=== PATIENT | male | born 1965 | race Caucasian/White ===

== ENCOUNTER → 2021-02-03 07:12 | Outpatient (CLI) | payer MEDICARE ==
[2021-01-06 13:43] VITALS: BMI 47.7
[~2021-02-03 07:12] MED LIST: ASPIRIN EC81 M1 PO; ATENOLOL25 MG; BUMEX2 MG PO; C-10001000 MG PO; CALCIUM 600 +1 EAC3 PO; CELEXA40 MG PO; CEREFOLIN TAB1 TAB PO; ENDOCET 10-3251 TAB PO; GLUCOPHAGE1000 MG PO; HYDROCODON-ACE1 EAC7 PO; JANTOVEN7.5 MG PO; K-DUR20 MEQ PO; KEPPRA500 MG PO; LISINOPRIL10 MG PO; LOPRESSOR25 MG PO; MIRAPEX0.25 MG PO; MIRAPEX1 MG PO; MOBIC7.5 MG PO; MULTI-DAY VITAM1 TAB PO; NEURONTIN 400400 MG PO; NEURONTIN800 MG PO; NORVASC5 MG PO; PERCOCET 10/3251 TA1 PO; PROTONIX40 MG PO; ROBAXIN500 MG PO; SEROQUEL200 MG PO; ULTRAM50 MG PO; VALIUM10 MG PO; ZESTORETIC 20-1 EACH PO
--- NOTE | 2021-02-05 09:41 | EC ---
PATIENT:BRAD QURESHI DATE OF SERVICE: 02/03/21 SEX: M MEDICAL RECORD: [id number] DATE OF : 65 LOCATION:[facility] AGE OF PATIENT: 55 ADMISSION DATE: 02/03/21 REFERRING PHYSICIAN: INTERPRETING PHYSICIAN: BRAD GARCIA MD ECHOCARDIOGRAM REPORT ECHO CHARGES 4 ECHO COMPLETE Date: 02/03/21 CLINICAL DIAGNOSIS: HEART MURMUR ECHOCARDIOGRAPHIC MEASUREMENTS (adult normal given) AC root (d.<3.7cm) 4.1 cm LV Septum d (<1.2 cm> 1.4 cm Valve Excursion 1.8 cm LV Septum (systole) 1.6 cm Left Atria (s.<4.0cm> 4.5 cm LVPW d(<1.2cm) 1.5 cm RV (d.<2.3cm) 4.2 cm LVPW (sytole) 1.6 cm LV diastole(<5.6CM) 6.1 cm MV E-F(>70mm/sec) cm LV systole 4.8 cm LVOT Diameter 1.9 cm MV exc.(>10mm) cm Est.ejection fraction (50-75%) % DOPPLER: LVIT cm/sec A 86.0 cm/sec E 61.0 cm/sec LA cm/sec RVSP 15 mmHg LVOT 78 cm/sec AOP1/2T m/s Asc. Ao 118 cm/sec RVOT 117 cm/sec RA cm/sec PA 135 cm/sec AV Gradient Peak 5.59 mmHg AV Mean 3.12 mmHg AV Area 1.8 cm MV Gradient Peak 3.91 mmHg MV Mean 1.82 mmHg MV Area cm COMMENTS: Metal Bonding Assembler: 2 LILA JEAN Churn Drill Operator: 3 Dr. Dong TAPE# PACS Pericardial Effusion N DATE OF SERVICE: Adequate 2D, color flow imaging, spectral Doppler, and M-Mode. LVH is present. LV internal dimensions are normal. Wall motion normal. EF greater than or equal to 55%. Aortic valve is tricuspid. No evidence of stenosis by Doppler interrogation. Left atrium is dilated at 4.5 cm. Mitral valve shows no prolapse. Trace MR. Right-sided chambers are grossly normal. Trace TR. ECHOCARDIOGRAM REPORT [id number] KIERABRAD TRANSINT:[id number] Voice Confirmation ID: [id number] DOCUMENT ID: [id number] BRAD GARCIA MD at 0941 CC: [id number] DICTATION DATE: 02/04/21 1441 CONTRACT ENGINEER: 02/04/211918 [facility] CLI 02/03/21 [facility] [address] [place] [address]
== END | disposition home or self-care (01) ==
LOC: D.HCCARDIO 07:12 → D.HCCECHO 11:00
PROVIDERS: ATTEND Internal Medicine Cardiovascular Disease
DX: I48.91 Unspecified atrial fibrillation (principal); R01.1 Cardiac murmur, unspecified

== ENCOUNTER → 2021-02-10 08:25 | Outpatient (CLI) | payer MEDICARE ==
[2021-01-06 13:43] VITALS: BMI 47.7
== END | disposition home or self-care (01) ==
LOC: D.MRI 08:25
DX: M17.0 Bilateral primary osteoarthritis of knee (principal)

== ENCOUNTER 2021-02-15 06:49 | Day surgery (SDC) | payer MEDICARE ==
[~2021-02-15] VITALS: Ht 182.9 cm; Wt 154.5 kg
--- NOTE | ~2021-02-15 | HEMODYNAMI ---
PATIENT:GEOFFREY QURESHI MEDICAL RECORD: [id number] : 65 LOCATION:[facility] ADMISSION DATE: 02/15/21 Generatedon:110:01 Patient name: GEOFFREY QURESHI Patient #: [id number] SSN: : 1965 Date of study: 02/15/2021 Page: Of Hemodynamic Procedure Report Patient Data Patient Demographics Procedure consent was obtained First Name: GEOFFREY Gender: Male Last Name: KIERA : 1965 Patient #: [id number] Age: 55 year(s) Race: Unknown Additional ID: [id number] Contact details Address: [place] [address] State: [place] City: [place] Zip code: [address] Past Medical History Allergies Allergen Reaction Date Comments Reported Other allergy 02/15/2021 MEPERIDINE, PCN Admission Admission Data Admission Date: 02/15/2021 Admission Time: 6:49 Lab Results Lab Result Date: 02/15/2021 Lab Result Time: 0:00 Biochemistry Name Units Result Min Max BUN mg/dl 13 --(--*-)-- 7 18 Creatinine mg/dl 1.3 --(---*)-- 0.6 1.3 eGFR ml/min 61.13230 *-(----)-- 90 120 NONAFRICAN CBC Name Units Result Min Max Hematocrit % 38.2 *-(----)-- 42 54 Hemoglobin g/dl 12.6 -*(----)-- 13.5 17.5 Procedure Procedure Types Cath Procedure Diagnostic Procedure LHC LHC w/Coronaries Procedure Description Procedure Date Procedure Date: 02/15/2021 Procedure Start Time: 9:46 Procedure End Time: 9:59 Procedure Staff Name Function Geoffrey Lucero MD Performing Physician Monica Bennett RT Monitor Chery Mckeon RT Scrub Kiera Gomez RN Nurse Procedure Data Cath Procedure Fluoroscopy Diagnostic fluoroscopy Total fluoroscopy Time: 1.1 time: 1.1 min min Diagnostic fluoroscopy Total fluoroscopy dose: 795 dose: 795 mGy mGy Contrast Material Contrast Material Type Amount (ml) Isovue 300 50 Entry Location Entry Primary Successful Side Size Upsize Upsize Entry Closure Wong ccessful Closure Location (Fr) 1 (Fr) 2 (Fr) Remarks Device Remarks Radial Right 6 Fr Mechanical artery Short Compression Estimated blood loss: 5 ml Procedure Complications No complications Procedure Medications Medication Administration Route Dosage Oxygen etCO2 Nasal cannula 2 l/min Lidocaine 2% added to field 20 Heparin Flush Bag added to field 2 bags (1000units/500ml NS) 0.9% NaCl I.V. 100 ml/hr Radial Cocktail added to field 1 syringe (Verapamil 2mg/Nitro 400mcg/Heparin 1500units) Radial Cocktail I.A. 1 syringe (Verapamil 2mg/Nitro 400mcg/Heparin 1500units) Versed I.V. 2 mg Fentanyl I.V. 100 mcg Versed I.V. 1 mg Fentanyl I.V. 50 mcg Hemodynamics Rest HGB: 12.6 (g/dl) Heart Rate: 69 (bpm) Pressure Samples Time Site Value (mmHg) Purpose Heart Use Rate(bpm) 9:49 LV 130/12,17 Snapshot 93 9:49 AO 132/92(111) Pullback 93 9:49 LV 131/7,9 Pullback 93 Gradients Valve Time Site 1 Site 2 Mean SEP/DFP Peak To Heart Use (mmHg) (sec/min) Peak Rate (mmHg) (bpm) Aortic 9:49 LV AO 0 93 131/7,9 132/92(111) Calculations Valve P-P Mean Valve Index Valve Source Name Gradient Area Flow (cm2) Aortic 0 0 Snapshots Pre Cath Intra NCS Post Cath Vital Signs Time Heart Resp SPO2 etCO2 NIBP (mmHg) Rhythm Pain Sedation Rate (ipm) (%) (mmHg) Status Level (bpm) 9:36:20 73 13 100 0 161/91(122) NSR 0 (11) 10(A) , No pain 9:40:47 67 21 99 0 150/97(116) NSR 0 (11) 10(A) , No pain 9:45:11 76 20 96 0 147/93(120) NSR 0 (11) 10(A) , No pain 9:49:25 92 20 98 0 141/92(115) NSR 0 (11) 9(A) , No pain 9:53:25 85 19 96 0 147/89(122) NSR 0 (11) 10(A) , No pain 9:57:49 0 140/91(111) NSR 0 (11) 10(A) , No pain Medications Time Medication Route Dose Verified Delivered Reason Notes Effectiveness by by 9:35:08 Oxygen etCO2 2 l/min Geoffrey Qureshi used for Nasal [facility] Pepe Gomez RN procedure cannula 9:35:15 Lidocaine 2% added 20ml Geoffrey Hale for local to vial [facility] anesthetic field MD GIL 9:35:21 Heparin Flush added 2 bags Geoffrey Hale used for Bag to [facility] procedure (1000units/500ml field MD GIL NS) 9:35:29 0.9% NaCl I.V. 100 Geoffrey Qureshi Per ml/hr [facility] Pepe Gomez RN physician 9:35:37 Radial Cocktail added 1 Geoffrey Hale for (Verapamil to syringe [facility] vasodilation 2mg/Nitro field MD GIL 400mcg/Heparin 1500units) 9:45:29 Versed I.V. 2 mg Geoffrey Qureshi for sedation [facility] Pepe Gomez RN, MD 9:45:36 Fentanyl I.V. 100 mcg Geoffrey Qureshi for sedation [facility] Pepe Gomez RN, MD 9:48:22 Radial Cocktail I.A. 1 Geoffrey Hale for (Verapamil syringe [facility] vasodilation 2mg/[place]set GIL MD 400mcg/Heparin 1500units) 9:48:51 Versed I.V. 1 mg Geoffrey Qureshi for sedation [facility] Pepe Gomez RN, MD 9:48:55 Fentanyl I.V. 50 mcg Geoffrey Qureshi for sedation [facility] Pe[facility] Gomez RN, MD Procedure Log Time Note 9:20:54 Kiera Gomez RN sent for patient. Start room use. 9:24:23 Informed consent obtained and on chart 9:24:48 Procedure Status Elective Heart Cath (OP). 9:24:50 Time tracking: Regular hours (M-F 7:00 - 5:00) 9:24:53 Plan of Care:Hemodynamics will remain stable., Cardiac rhythm will remain stable., Comfort level will be maintained., Respiratory function will remain adequate., Patient/ family verbilizes understanding of procedure., Procedure tolerated without complication., Recovers from procedure without complications.. 9:34:58 Vital chart was started 9:35:08 Oxygen 2 l/min etCO2 Nasal cannula was administered by Kiera Gomez RN; used for procedure; Verbal order read back and verified. 9:35:15 Lidocaine 2% 20ml vial added to field was administered by Geoffrey Lucero MD; for local anesthetic; Verbal order read back and verified. 9:35:21 Heparin Flush Bag (1000units/500ml NS) 2 bags added to field was administered by Geoffrey Lucero MD; used for procedure; Verbal order read back and verified. 9:35:29 0.9% NaCl 100 ml/hr I.V. was administered by Kiera Gomez RN; Per physician; Verbal order read back and verified. 9:35:37 Radial Cocktail (Verapamil 2mg/Nitro 400mcg/Heparin 1500units) 1 syringe added to field was administered by Geoffrey Lucero MD; for vasodilation; Verbal order read back and verified. 9:37:11 Patient received from Pre/Post Procedure Room to CCL 1 Alert and oriented. Tansferred to table in Supine position. 9:37:12 Warm blankets applied, and oscar hugger turned on for patient comfort. 9:37:12 Correct patient and procedure confirmed by team. 9:37:12 ECG and BP/O2 sat monitors applied to patient. 9:37:13 Baseline sample Acquired. 9:37:16 Rhythm: sinus rhythm 9:37:18 Full Disclosure recording started 9:37:35 H&P Date Dictated: 01/25/2021 Within 30 days and on chart., H&P Addendum completed by physician on day of procedure. (MUST COMPLETE FOR ALL OUTPATIENTS). 9:37:36 Pre-procedure instructions explained to patient. 9:37:36 Pre-op teaching completed and patient verbalized understanding. 9:37:38 Family in patients room. 9:37:39 Patient NPO since Midnight. 9:41:36 Patient allergic to Other allergyMEPERIDINE, PCN 9:41:41 Is the patient allergic to Iodine/contrast media? No. 9:41:42 Is patient on blood thinner?No 9:41:44 Patient diabetic? Yes. 9:41:45 If diabetic: On Metformin? Yes 9:41:47 If on Metformin: Last Dose? 02/13/2021 9:41:53 Previous problem with sedation/anesthesia? No ? 9:41:54 Snore? Yes 9:41:55 Sleep apnea? Yes 9:41:56 Deviated septum? No 9:41:56 Opens mouth fully? Yes 9:41:58 Sticks out tongue? Yes 9:42:00 Airway obstruction? No ? 9:42:03 Dentures? No ? 9:42:07 Pre procedure: right dorsailis pedis pulse 1+ Palpable, but thready & weak; easily obliterated 9:42:09 Modified Ruben's test Ulnar < 7 seconds 9:42:11 Patient pain scale 2/10 ?. 9:42:18 IV patent on arrival in left antecubital with 0.9% NaCl at [facility]. 9:42:42 Lab Result : BUN 13 mg/dl 9::42 Lab Result : Creatinine 1.3 mg/dl 9:42:42 Lab Result : eGFR NONAFRICAN 61.11093 ml/min 9:42:42 Lab Result : Hemoglobin 12.6 g/dl 9:42:42 Lab Result : Hematocrit 38.2 % 9:42:45 Lab results completed and on chart. 9:42:52 Right groin area was prepped with chlora-prep and draped in sterile fashion 9:42:53 Alarms reviewed by R. N. 9:42:53 Sharps counted by scrub and verified by R.N. 9:44:22 --------ALL STOP TIME OUT------ 9:44:22 Final Timeout: patient, procedure, and site verified with staff and physician. All members of the team are in agreement. 9:44:24 Right Radial & Right Groin site verified by team. 9:44:27 Fire Safety Assessment: A--An alcohol-based skin anteseptic being used preoperatively., C--Open oxygen or nitrous oxide is being used., D--An ESU, laser, or fiber-optic light is being used. 9:44:31 Physical assessment completed. ASA score P 3 - A patient with severe systemic disease as per Geoffrey Lucero MD. 9:44:34 2) 60-89 Mildly reduced kidney function, and other findings (as for stage 1) point to kidney disease. 9:44:37 Maximum allowable contrast dose (3.7 X eGFR X 0.75)169 ml. 9:44:41 Sedation plan: IV Moderate Sedation Medication:Versed, Fentanyl 9:45:29 Versed 2 mg I.V. was administered by Kiera Gomez RN; for sedation; Verbal order read back and verified. 9:45:36 Fentanyl 100 mcg I.V. was administered by Kiera Gomez RN; for sedation; Verbal order read back and verified. 9:46:12 Zero performed for pressure channel P1 9:46:15 Procedure started. 9:46:24 Local anesthetic to right radial artery with Lidocaine 2% by Geoffrey Lucero MD.INITIAL ACCESS ONLY 9:46:55 Use device set Radial Dx or PCI 9:47:05 ACIST Syringe (12817) opened to sterile field. 9:47:05 Medline Cath Pack ([id number]) opened to sterile field. 9:47:06 Bag Decanter (2002S) opened to sterile field. 9:47:06 ACIST Hand Control (07083) opened to sterile field. 9:47:07 ACIST Manifold (16360) opened to sterile field. 9:47:07 Tegaderm 4 x 4 (1626W) opened to sterile field. 9:47:11 MBrace Wrist Support ([id number]) opened to sterile field. 9:47:11 EMERALD Guide Wire (275-824) opened to sterile field. 9:47:12 SHEATH 6FR RAIN ([id number]) opened to sterile field. 9:47:59 A 6 Fr Short sheath was inserted into the Right Radial artery 9:48:22 Radial Cocktail (Verapamil 2mg/Nitro 400mcg/Heparin 1500units) 1 syringe I.A. was administered by Geoffrey Lucero MD; for vasodilation; Verbal order read back and verified. 9:48:47 LV gram done using DUMONT 9:48:49 Injector settings: Ml/sec: 5, Volume: 15, 9:48:51 Versed 1 mg I.V. was administered by Kiera Gomez RN; for sedation; Verbal order read back and verified. 9:48:55 Fentanyl 50 mcg I.V. was administered by Kiera Gomez RN; for sedation; Verbal order read back and verified. 9:49:14 LV hemodynamics recorded. 9:49:31 EF : 50 % 9:50:17 LCA angiography performed. 9:51:41 RCA angiography performed. 9:51:44 Catheter removed. 9:51:48 ZEPHYR LARGE TR BAND (015449) opened to sterile field. 9:54:01 Procedure ended.(Physican Out) 9:54:54 Sheath removed intact; hemostasis achieved with Mechanical Compression to the Right Radial artery. 9:54:59 Fluoroscopy time 01.10 minutes. 9:55:03 Fluoroscopy dose: 795 mGy 9:55:03 Flurop Dose total: 795 9:55:15 Dose Area Product 02578 mGy/cm. 9:55:19 Contrast amount:Isovue 300 50ml. 9:55:22 Maximum allowable dose exceeded? No. 9:55:23 Sharps counted by scrub and verified by R.N. 9:55:33 [place] band inflated with 10cc of air. 9:55:35 Insertion/operative site no bleeding no hematoma. 9:55:38 Post-procedure physical assessment completed. ASA score P 2 - A patient with mild systemic disease as per Geoffrey Lucero MD. 9:57:50 Post procedure rhythm: unchanged. 9:57:53 Estimated blood loss: 5 ml 9:57:55 Post procedure instruction explained to patient.Patient verbalizes understanding. 9:57:55 Patient needs reinforcement of post procedure teaching. 9:59:09 Procedure and supply charges have been captured, reviewed, submitted and are correct. 9:59:11 Procedure Complication : No complications 9:59:13 Vital chart was stopped 9:59:[address] [facility] Findings: mild to moderate CAD (<70%) 9:59:18 Operative report dictated upon procedure completion. 9:59:18 See physician's report for complete and final results. 9:59:30 Report given to Pre/Post Procedure Room. 9:59:34 Patient transfered to Pre/Post Procedure Room with Bed. 9:59:37 Procedure ended. 9:59:37 Full Disclosure recording stopped 9:59:42 End room use (Document Last) 9:59:51 End room use (Document Last) 10:00:13 End room use (Document Last) Device Usage Item Name Manufacture Quantity Catalog Hospital Part Current Minima l Lot# / Number Charge Number Stock Stock Serial# Code ACIST Acist 1 29238 834303 068907 547320 20 Syringe [employer] Corporation (49847) Allclasses Inc Medline Medline 1 [id number] 00018 984843 5 Cath Pack ([id number]) Bag Microtek 1 769156 68199 411990 5 Decanter Medical Inc. () ACIST Hand Acist 1 95165 281760 706942 462861 5 Control Medical (83786) Systems Inc ACIST Acist 1 89265 388531 357379 038467 5 Manifold Medical (40793) Systems Inc Tegaderm 4 3M 1 1626W 683237 282067 641557 5 x 4 (1626W) MBrace Advanced 1 140-0250-00 642698 64070 399867 5 Wrist Vascular Support Dynamics ([id number]) EMERALD Cardinal 1 639-610 956927 190786 813207 5 Guide Wire Health (337-637) SHEATH 6FR Cardinal 1 2675438 431872 4323028 799258 5 RAIN Health (4573836) ZEPHYR Cardinal 1 598994 414092 8303478 351020 5 LARGE TR Health BAND (584495) Signature Audit [place] Stage Time Signature Unsigned Intra-Procedure 02/15/2021 Monica Bennett 9:59:51 AM RT(R) Intra-Procedure 02/15/2021 Kiera Gomez RN 10:00:13 AM Intra-Procedure 02/15/2021 Geoffrey Pollock 10:01:44 AM Pepe [id number] [place] [address]
[2021-02-15 08:32] VITALS: BP 169/93; Ht 182.9 cm; Wt 154.5 kg
[2021-02-15 08:50] LABS: BASOPHILS 0.6 % (0-2); HEMATOCRIT 38.2 % (42.0-54.0); HEMOGLOBIN 12.6 g/dL (13.5-17.5); IMMATURE GRANULOCYTES 0.6 % (0-5); LYMPHOCYTE ABS# 0.85 10x3/uL (1.32-3.57); LYMPHOCYTES 24.1 % (15-50); MCH 30.1 pg (26.0-34.0); MCV 91.2 fL (80.0-100.0); MEAN PLATELET VOLUME 11.1 fL (7.4-10.4); MONOCYTES 12.2 % (2-11); NEUTROPHIL ABS# 2.13 10x3/uL (1.78-5.38); NEUTROPHILS 60.5 % (40-80); PLATELET COUNT 150 10x3/uL (130-400); RBC 4.19 10x6/uL (4.20-6.10); RDW 13.9 % (11.5-14.5); WBC 3.5 10x3/uL (4.8-10.8)
[2021-02-15] MEDS ORDERED: GLIPIZIDE10 MG PO (08:52)
[2021-02-15] MEDS ORDERED: ERGOCALCIF50000 UNIT PO (08:53)
[2021-02-15] MEDS ORDERED: HYDROCODONE-AC1 EAC2 PO (08:53)
[2021-02-15] MEDS ORDERED: ALDACTONE25 MG PO (08:54)
[2021-02-15] MEDS ORDERED: NORVASC5 MG PO (08:56)
[2021-02-15] MEDS ORDERED: FLOMAX0.4 MG PO (08:56)
[2021-02-15 09:02] LABS: ANION GAP 12.9 mmol/L (8-16); CALCIUM 9.1 mg/dL (8.5-10.1); CARBON DIOXIDE 31.5 mmol/L (21.0-32.0); CHOL - HDL RATIO 3.2 ratio (2.3-4.9); CREATININE - SERUM 1.3 mg/dL (0.6-1.3); LDL-HDL RATIO 1.6 ratio (1.5-3.5); POTASSIUM - SERUM 3.4 mmol/L (3.5-5.1)
[2021-02-15 09:17] LABS: INR 1.29 (0.85-1.17); PROTIME 14.9 SECONDS (11.6-15.0)
--- NOTE | 2021-02-15 10:15 | NUR ---
ARRIVES TO ROOM 8 VIA STRETCHER S/P HEART CATH. SEE AUDITING CONTROL CLERK, PLACED ON MONITORS ALARMS ON , IV INFUSING PER ORDERS, CALL LIGHT WITHIN REACH, DENIES PAIN OR NEEDS AT PRESENT, SPRITE GIVEN
--- NOTE | 2021-02-15 10:30 | NUR ---
PT RESTING QUIETLY AWAKE AND ALERT, VSS, SR WTIH NO ECTOPY , IV INFUSING PER ORDERS, RIGHT WRIST WITH ZBAND IN PLACE NO OOZING OR BLEEDING NOTED, RIGHT RADIAL PULSE PALPABLE, CAP REFILL WNL, MOVES ALL DIGITS, CALL LIGHT WITHIN REACH
--- NOTE | 2021-02-15 10:45 | NUR ---
PT AWAKE TALKING WITH HIS BROTHER AT BEDSIDE, VSS, SR, RIGHT WRIST STABLE WITH ZBAND IN PLACE NO OOZING OR BLEEDING NOTED, RIGHT RADIAL PULSE PALPABLE CAP REFILL WNL, MOVES ALL DIGITS, IV INFUSING PER ORDERS, DENIES BATHROOM NEEDS, DENIES PAIN OR NEEDS, CALL LIGHT WITHIN REACH
--- NOTE | 2021-02-15 11:00 | NUR ---
SITTING UP IN BED, NO PAIN OR NEEDS, VSS, SR, IV INFUSING PER ORDERS, RIGHT WRIST WITH ZBAND IN PLACE NO OOZING OR BLEEDING , RIGHT RADIAL PULSE PALPABLE, CAP REFILL WNL, DENIES PAIN OR NEEDS, SANDWICH BOX GIVEN WITH PO FLUIDS, CALL LIGHT WITHIN REACH
--- NOTE | 2021-02-15 11:30 | NUR ---
2CC AIR REMOVED FROM RIGHT ZBAND, NO OOZING OR BLEEDING NOTED, RADIAL PULSE PALPABLE, CAP REFILL WNL, DENIES PAIN OR NEEDS, IV INFUSING PER ORDERS, PT PLAN OF CARE UP DATED WITH HIM AND FAMILY MEMBER, CALL LIGHT WITHIN REACH
--- NOTE | 2021-02-15 11:40 | NUR ---
REMAINING AIR REMOVED FROM ZBAND WITHOUT OOZING OR BLEEDING NOTED, RADIAL PULSE PALPABLE, CAP REFILL WNL, MOVES ALL DIGITS, VSS, SR, DENIES PAIN OR NEEDS, DISCHARGE INSTRUCTIONS REVIEWED WITH PT, IV REMOVED CATHETER INTACT 2 X 2 DRESSING APPLIED, PT UP TO DRESS WITH HELP FROM FAMILY MEMEMBER AMBULATES TO BATHROOM VOIDS WITHOUT DIFFICULTY. CALL LIGHT WITHIN REACH
--- NOTE | 2021-02-15 12:00 | NUR ---
DISCHARGE INSTRUCTIONS REVIEWED WITH PT AND HIS BROTHER VERBALIZED UNDERSTANDING, PT RIGHT WRIST STABLE OPSITE DRESSING INPLACE NO OOZING OR BLEEDING NOTED , RADIAL PULSE PALPABLE, CAP REFILL WNL, EXTREMITY WARM AND DENIES PAIN. PT TAKEN TO FAMILY CAR VIA WHEELCHAIR, QUESTIONS AND CONCERNS ADDRESSED
--- NOTE | 2021-02-15 16:00 | OP ---
PATIENT NAME: BRAD QURESHI MEDICAL RECORD: [id number] :65 LOCATION:[facility] ADMISSION DATE: SURGEON: BRAD GARCIA MD DATE OF OPERATION: 02/15/2021 PROCEDURE: Left heart catheterization, selective coronary angiography, right radial approach. CATHETERS: Radial sheath, Phoenix catheter. Procedure was well tolerated. The patient was returned to the guzman. Sheath removed. TR band was placed. FINDINGS: Left ventriculography in 30-degree DUMONT view; normal wall motion and normal systolic function. CORONARY ANATOMY: LEFT MAIN: Left main is free of disease. LAD: Free of disease. There is a large diagonal branch, free of disease as well. CIRCUMFLEX: Codominant system, large circumflex, free of disease. RIGHT CORONARY ARTERY: Large, codominant, and free of disease. IMPRESSION: Normal coronary anatomy, normal left ventricular function. TRANSINT:[id number] Voice Confirmation ID: [id number] DOCUMENT ID: [id number] BRAD GARCIA MD at 1600 CC: [id number] DICTATION DATE: 02/15/21 0956 LITIGATION ASSISTANT: 02/15/21 1334 [facility] 02/15/21 [facility] [address] [facility] [place] [address]
== END 2021-02-15 12:00 | disposition home or self-care (01) ==
LOC: D.CATH 06:49
PROVIDERS: ATTEND Internal Medicine Interventional Cardiology
DX: R94.30 Abnormal result of cardiovascular function study, unspecified (principal); I20.9 Angina pectoris, unspecified; I48.91 Unspecified atrial fibrillation; I10 Essential (primary) hypertension; E78.5 Hyperlipidemia, unspecified; E11.9 Type 2 diabetes mellitus without complications; Z79.84 Long term (current) use of oral hypoglycemic drugs; R01.1 Cardiac murmur, unspecified

== ENCOUNTER 2021-03-15 08:00 | Observation (INO) | payer MEDICARE ==
[2021-03-10 12:47] LABS: BILIRUBIN NEGATIVE (NEGATIVE); KETONE NEGATIVE (NEGATIVE); NITRITE NEGATIVE (NEGATIVE); UROBILINOGEN NORMAL mg/dL (< 2)
[2021-03-10 13:19] LABS: BASOPHILS 0.4 % (0-2); EOSINOPHILS 2.3 % (0-7); HEMATOCRIT 40.9 % (42.0-54.0); IMMATURE GRANULOCYTES 0.6 % (0-5); LYMPHOCYTE ABS# 0.77 10x3/uL (1.32-3.57); LYMPHOCYTES 16.1 % (15-50); MCH 28.3 pg (26.0-34.0); MCHC 31.8 g/dL (31.0-37.0); MCV 88.9 fL (80.0-100.0); NEUTROPHIL ABS# 3.18 10x3/uL (1.78-5.38); NEUTROPHILS 66.6 % (40-80); RDW 13.6 % (11.5-14.5); WBC 4.8 10x3/uL (4.8-10.8)
[2021-03-10 13:22] LABS: PLATELET COUNT 192 10x3/uL (130-400)
[2021-03-10 13:25] LABS: ANION GAP 12.9 mmol/L (8-16); CALCIUM 8.5 mg/dL (8.5-10.1); CARBON DIOXIDE 29.1 mmol/L (21.0-32.0); CREATININE - SERUM 1.4 mg/dL (0.6-1.3)
[2021-03-10 13:36] LABS: APTT 40.1 SECONDS (22.8-39.4); INR 2.35 (0.85-1.17); PROTIME 23.9 SECONDS (11.6-15.0)
[~2021-03-15] VITALS: Ht 182.9 cm; Wt 154.7 kg
[2021-03-15] VITALS (11 sets, daily range): BP systolic 122–150; BP diastolic 75–94; BMI 46.3
--- NOTE | ~2021-03-15 | OP ---
PATIENT NAME: BRAD VARGHESE MEDICAL RECORD: [id number] :65 LOCATION:D. D.1209 ADMISSION DATE:03/15/21 SURGEON: RAVEN CHONG MD DATE OF OPERATION: 03/15/2021 PREOPERATIVE DIAGNOSIS: Osteoarthritis, right knee. POSTOPERATIVE DIAGNOSIS: Osteoarthritis, right knee. PROCEDURE PERFORMED: Right total knee arthroplasty. INDICATIONS: Mr. Varghese is a 55-year-old male with history of right knee pain and arthritis. He has been having pain in his knee for some time now and symptoms are getting progressively worse. It is beginning to affect his mobility. He would like to proceed with surgery for right total knee arthroplasty. Risks, benefits, and alternatives of surgery were discussed with the patient and consent was obtained. DESCRIPTION OF PROCEDURE: The patient was met in the holding area where his identity and confirmation of procedure was performed. The right lower extremity was marked. He was taken to the operating room where he was placed supine on the operating table, and anesthesia was administered. Tourniquet was applied to the right thigh and the right leg was prepped and draped in a sterile fashion. The patient received preoperative antibiotics as well as TXA and a timeout was performed before initiating the case. On initiation of the case, leg was exsanguinated and the tourniquet was raised. Total tourniquet time was approximately 110 minutes. A medial parapatellar approach was utilized for exposure. Knee was placed in flexion. We incised through the skin and subcutaneous tissue over the anterior knee, dissected down to the extensor mechanism. The quad tendon was then incised along its medial border curving medially around the patella and down the medial border of the patellar tendon. The knee was then taken into extension. Tissue from the posterior fat pad of the patella over the anterior distal femur was excised. A flap of tissue was elevated off the medial tibial plateau and a portion of the medial meniscus was excised. Patella was then everted. The knee was placed back into flexion. Retractors were placed medial and lateral. Racine's line was marked and the cruciate ligaments were excised. The femoral tunnel was then drilled and our intramedullary femoral guide was then inserted. The distal femoral cutting block was pinned into place and our distal femur cut was then completed. The femur was sized to a size 6. The 4-in-1 cutting block was pinned into place and the anterior, posterior, and chamfer cuts were completed. Bony pieces were removed. Osteophytes were then removed from the edges with a rongeur. Trial for a box cut was then positioned over the distal femur and then it was pinned into place. A box cut was completed using a reciprocating saw and osteotome. The bony pieces were removed. We then turned our attention to the tibia. PCL retractor was placed and the remainder of the medial and lateral menisci were excised. The tibia was retracted anteriorly. Extramedullary tibial guide was placed and adjusted for alignment. Our cutting block was pinned into position and an additional 5-mm was added to our proximal tibial cut. Cutting block was pinned into place and we again checked our alignment. The proximal tibial cut was then completed. Osteophytes were removed from the medial aspect of the tibia. The tibia was sized to a size 6. The tibial trial was pinned into place. We then trialed with our femur going up to a size 16 poly. At which point, we had good fit and stability throughout range of motion. We then turned our attention to the patella. Patella was everted and towel clips were placed OPERATIVE REPORT [id number] BRAD VARGHESE in the superior and inferior poles. Cautery was used around the circumference. There is significant wear of the medial facet. A caliper was used to circuit judge our width. Patella was then cut to the floor of the lateral facet, sized to a size 36 and drilled. The knee was repositioned in flexion and the femoral trial and poly were removed. The tibia was prepared using a punch as we held it in external rotation. The trial components were then removed and the laminar cardiograph operator was inserted. Osteophytes were removed from the posterior aspects of the distal femur. Knee was then taken to extension, irrigated thoroughly with saline. Joint solution was injected around the capsule of the proximal tibia and the distal femur. The bony ends were then dried and the knee was repositioned in flexion. Final components were then cemented into place, excess cement was removed throughout this process. Trial poly was placed and the knee was held in full extension while the cement was allowed to dry. Patella was held with the patellar clamp. Once the cement was dry and the excess was removed, the knee was again trialed with a size 16 poly, felt to have good fit and stability. Our final size 16 posterior stabilized poly was then placed and tapped into position. Knee was taken through range of motion, had good stability. The knee was irrigated thoroughly with saline. A drain was placed in the lateral gutter. The extensor mechanism was closed with #1 Vicryl suture. Subcutaneous tissues were irrigated thoroughly with saline. These were then closed with 2-0 Vicryl and the skin was closed with airam. A sterile dressing was placed. The patient was turned back over to anesthesia where he was awakened, extubated, and taken to recovery room in stable condition. POSTOPERATIVE PLAN: The patient is going to be admitted for routine postoperative care. He will receive 24 hours of postoperative antibiotics, will be started on DVT prophylaxis tomorrow. Physical therapy will be consulted to assist with mobility. Weightbearing as tolerated, right lower extremity. PLAN: Home with home health upon discharge. COMPLICATIONS: None. ESTIMATED BLOOD LOSS: 100 mL. ANESTHESIA: General with peripheral nerve block. TRANSINT:[id number] Voice Confirmation ID: [id number] DOCUMENT ID: [id number] RAVEN CHONG MD CC: [id number] DICTATION DATE: 03/15/21 1606 CAMERA STORAGE CLERK: 03/15/21 2214 ADM IN [facility] [address] [place] [address]
[~2021-03-15 08:00] MED LIST changes: +ALDACTONE25 MG PO; +ERGOCALCIF50000 UNIT PO; +FLOMAX0.4 MG PO; +GLIPIZIDE10 MG PO; +HYDROCODONE-AC1 EAC2 PO; +VITAMIN B COMPLEX PO; +VITAMIN B12 PO; +VITAMIN C500 M1 PO; +WARFARIN SODIUM4 MG PO; +[UNRECOGNIZED DRUG - REMARK]
[2021-03-15 09:02] LABS: INR 1.32 (0.85-1.17); PROTIME 15.2 SECONDS (11.6-15.0)
--- NOTE | 2021-03-15 16:50 | NUR ---
RECEIVED TO ROOM 1209 VIA BED FROM PACU. A/O X3. NO C/O AT THIS TIME. SKIN IS INTACT WITHOUT REDNESS EXCEPT INCISION TO RIGHT KNEE WHICH HAS A DRY INTACT DRESSING IN PLACE AND MULTIPLE SMALL SCABBED AREAS WHICH HE SAYS ARE BUG BITES. WILL MONITOR. YVON'S AND SCD'S IN PLACE. DENIES NEEDS.
--- NOTE | 2021-03-15 18:15 | NUR ---
ATE ALL OF SUPPER TRAY. CPM PLACED TO RIGHT KNEE AT THIS TIME. NO CHANGES NOTED. DENIES NEEDS.
--- NOTE | 2021-03-15 18:40 | NUR ---
REQUESTED AND GIVNE ONE PERCOCOET PO FOR C/O RIGHT KNEE PAIN LEVEL 5. WILL MONITOR.
[2021-03-16 00:36] VITALS: BP 116/67
[2021-03-16 04:58] VITALS: BP 129/72
--- NOTE | 2021-03-16 06:15 | NUR ---
PLACED PATIENT ON CPM TO RIGHT KNEE. REMOVED DAMON PER ORDERS.
[2021-03-16 07:00] VITALS: BP 126/67
[2021-03-16 07:23] LABS: BASOPHILS 0.1 % (0-2); EOSINOPHILS 0.6 % (0-7); HEMATOCRIT 34.6 % (42.0-54.0); HEMOGLOBIN 10.9 g/dL (13.5-17.5); IMMATURE GRANULOCYTES 0.3 % (0-5); LYMPHOCYTE ABS# 0.82 10x3/uL (1.32-3.57); LYMPHOCYTES 11.4 % (15-50); MCHC 31.5 g/dL (31.0-37.0); MCV 88.9 fL (80.0-100.0); MEAN PLATELET VOLUME 12.3 fL (7.4-10.4); MONOCYTES 10.6 % (2-11); NEUTROPHIL ABS# 5.53 10x3/uL (1.78-5.38); PLATELET COUNT 171 10x3/uL (130-400); RBC 3.89 10x6/uL (4.20-6.10); RDW 14.1 % (11.5-14.5); WBC 7.2 10x3/uL (4.8-10.8)
[2021-03-16 07:31] LABS: INR 1.38 (0.85-1.17); PROTIME 15.7 SECONDS (11.6-15.0)
[2021-03-16 07:40] LABS: ALBUMIN 2.8 g/dL (3.4-5.0); BILIRUBIN - TOTAL 0.82 mg/dL (0.2-1.3); CALCIUM 7.6 mg/dL (8.5-10.1); CREATININE - SERUM 1.7 mg/dL (0.6-1.3); MAGNESIUM - SERUM 1.5 mg/dL (1.8-2.4); PROTEIN - SERUM 6.6 g/dL (6.4-8.2)
--- NOTE | 2021-03-16 11:29 | NUR ---
L HAND IV INFILTRATED. REMOVED, TIP INTACT. 20 G STARTED TO RIGHT FA X 1 ATTEMPT. NO COMPLAINTS.
[2021-03-16 12:00] VITALS: BP 127/70
--- NOTE | 2021-03-16 13:41 | MORECARE ---
CASE MANAGEMENT DISCHARGE SUMMARY PATIENT: BRAD QURESHI UNIT: [id number] ADM DATE: 03/15/21 AGE: 55 : 65 SEX: M ROOM/BED: D.1209 AUTHOR: JOSEDOC PHYSICIAN: REFERRING PHYSICIAN: RAVEN CHONG MD DATE OF SERVICE: 03/16/21 Case Management Discharge Planning Summary DCP REVIEW SUMMARY ANTICIPATED D/C DATE: EXPECTED LOS : CASE STATUS: DCP Initiated INITIAL REVIEW: 03/15/2021 INITIAL REVIEWER: Kayode Mccallum FINAL DISCHARGE DISPOSITION: : FINAL REVIEWER: FINAL REVIEW DATE: DCP Focus Questions & Answers QUESTION: ANSWER : PATIENT: BRAD QURESHI ENCOUNTER: [id number] MEDICAL RECORD#: [id number] ADMISSION DATE: 03/15/2021 DISCHARGE DATE: ATTENDING MD: YOUSIF: AGE: 55 MARITAL STATUS: D DC PLAN ID: [id number] FACILITY: [facility] PRINTED ON: 03/16/21 13:41 CT All edits/amendments must be made on the electronic document DICTATION DATE: 03/16/21 134 CHICKEN PICKER: DM 03/16/21 1341 RPT#: [id number] DC DATE: STATUS: ADM IN [facility] [address] [place] [address] END OF REPORT
--- NOTE | 2021-03-16 13:55 | MORECARE ---
CASE MANAGEMENT DISCHARGE SUMMARY PATIENT: BRAD QURESHI UNIT: [id number] ADM DATE: 03/15/21 AGE: 55 : 65 SEX: M ROOM/BED: D.1209 AUTHOR: JOSE,DOC PHYSICIAN: REFERRING PHYSICIAN: RAVEN CHONG MD DATE OF SERVICE: 03/16/21 Case Management Discharge Planning Summary COMMENTS ENTERED DATE: 03/16/21 13:54 CT COMMENT TYPE: Discharge Planning REVIEWER: Kayode Mccallum CM met with patient to complete DC plan and to evaluate needs. Patient lives alone but has considerable family support. Patient stated that his home is safe and has electricity and running water. Patient stated that the home has a ramp and he can leave and enter his home without problems. Patient stated that he has no problems paying for medications and he fills his medications at [facility]. Patient stated that his primary care physician is Dr. Rodarte. At discharge, the patient plans to return home and feels this is a safe discharge. CM discussed availability of home health, rehab services, and medical equipment. Patient declined SNF, IPR, and DME. Patient has a walker in his room and stated that he has a Wheelchair and Crutches at home. Patient stated that he wants to use [facility]. Spoke with Mira of [facility]. Mira stated that she will have to contact CM team after review of Clinical documents. Mira further stated that they will not have availability until later this week. Clinical Documents faxed to [facility]. MARGAUX signed and placed on chart. Patient voiced no other needs at this time and is satisfied with DC plan. Transportation provider at discharge will be with his brother Eric. DC IMM delivered, explained, signed by the patient, and placed in chart. Signed form also left with the patient. CM will continue to follow and will assist as needed with dc plans/needs. DCP REVIEW SUMMARY ANTICIPATED D/C DATE: EXPECTED LOS : CASE STATUS: DCP Initiated INITIAL REVIEW: 03/15/2021 INITIAL REVIEWER: Kayode Mccallum FINAL DISCHARGE DISPOSITION: : FINAL REVIEWER: FINAL REVIEW DATE: DCP Focus Questions & Answers DCP Evaluation QUESTION: ANSWER Patient and/or caregiver agree upon recommended discharge plan? : Yes Family / Caregiver's ability to cope with chronic illness: : a. Adequate (ability to meet patient's medical needs, ensures patient attends medical appts.) Patient's current cognitive status: : *Oriented to person, place, situation, time and present Patient's ability to cope with chronic illness : d. No chronic illness Patient gives permission to discuss discharge plans with: (name, relationship and number) : Rj Delgado, Does the patient have the ability to pay for or attain post discharge needs / services? : Yes Functional screen assessment: : Basic needs can adequately be met by self Family / Caregiver's ability to cope with chronic illness: : a. Adequate (ability to meet patient's medical needs, ensures patient attends medical appts.) Physical Status: : Independent with ADL's Is there a likelihood that the patient will require additional services to return to the preadmission environment? : Yes Living Arrangements: : Home Alone with Support Partial Dependence, assistance required for: : Ambulation / Mobility Equipment needed for post hospitalization: : None Patient with capacity for self-care or can be cared for in same environment as prior to hospitalization? : Yes Baseline cognitive status: : *Oriented to person, place, situation, time and present Physical environment modification needed / anticipated for discharge: : No Medication Management: : Patient states can read and understand medication labels Medication Management: : Patient states can afford medications Does Patient have transportation to get home and to follow-up medical appointments when discharged from the hospital? : Yes Would patient like to participate in any Care Coordination programs (if applicable): : Not applicable Does the patient have electricity at home? : Yes Does the patient have running water in their house? : Yes Equipment in use: : Wheelchair Equipment in use: : Walker - Rolling Equipment in use: : Crutches Mental health screen: : No mental health history DCP Re-evaluation QUESTION: ANSWER Would patient like to participate in any Care Coordination programs (if applicable): : Not applicable PATIENT: BRAD QURESHI ENCOUNTER: [id number] MEDICAL RECORD#: [id number] ADMISSION DATE: 03/15/2021 DISCHARGE DATE: ATTENDING MD: YOUSIF: AGE: 55 MARITAL STATUS: D DC PLAN ID: [id number] FACILITY: [facility] PRINTED ON: 03/16/21 13:55 CT All edits/amendments must be made on the electronic document DICTATION DATE: 03/16/21 0596 SPORTS PHYSIOLOGIST: MOISÉS 03/16/21 1355 RPT#: [id number] DC DATE: STATUS: ADM IN [facility] [address] [facility] [place] [address] END OF REPORT
[2021-03-16 14:51] VITALS: Ht 182.9 cm; Wt 154.7 kg
[2021-03-16 15:09] VITALS: BP 134/64
[2021-03-16] MEDS ORDERED: ELIQUIS2.5 MG PO (17:31)
[2021-03-16] MEDS ORDERED: ELIQUIS2.5 MG (17:32)
--- NOTE | 2021-03-16 17:55 | NUR ---
DISCHARGE INSTRUCTIONS GIVEN, VERBALIZED UNDERSTANDING. ON WAY.
--- NOTE | 2021-03-16 19:15 | MORECARE ---
CASE MANAGEMENT DISCHARGE SUMMARY PATIENT: BRAD QURESHI UNIT: [id number] ADM DATE: 03/15/21 AGE: 55 : 65 SEX: M ROOM/BED: D.1209 AUTHOR: JOSE,DOC PHYSICIAN: REFERRING PHYSICIAN: RAVEN CHONG MD DATE OF SERVICE: 03/16/21 Case Management Discharge Planning Summary COMMENTS ENTERED DATE: 03/16/21 13:54 CT COMMENT TYPE: Discharge Planning REVIEWER: Kayode Mccallum CM met with patient to complete DC plan and to evaluate needs. Patient lives alone but has considerable family support. Patient stated that his home is safe and has electricity and running water. Patient stated that the home has a ramp and he can leave and enter his home without problems. Patient stated that he has no problems paying for medications and he fills his medications at [facility]. Patient stated that his primary care physician is Dr. Rodarte. At discharge, the patient plans to return home and feels this is a safe discharge. CM discussed availability of home health, rehab services, and medical equipment. Patient declined SNF, IPR, and DME. Patient has a walker in his room and stated that he has a Wheelchair and Crutches at home. Patient stated that he wants to use [facility]. Spoke with Mira of [facility]. Mira stated that she will have to contact CM team after review of Clinical documents. Mira further stated that they will not have availability until later this week. Clinical Documents faxed to [facility]. MARGAUX signed and placed on chart. Patient voiced no other needs at this time and is satisfied with DC plan. Transportation provider at discharge will be with his brother Eric. DC IMM delivered, explained, signed by the patient, and placed in chart. Signed form also left with the patient. CM will continue to follow and will assist as needed with dc plans/needs. DCP REVIEW SUMMARY ANTICIPATED D/C DATE: EXPECTED LOS : CASE STATUS: DCP Initiated INITIAL REVIEW: 03/15/2021 INITIAL REVIEWER: Kayode Mccallum FINAL DISCHARGE DISPOSITION: : FINAL REVIEWER: FINAL REVIEW DATE: DCP Focus Questions & Answers DCP Evaluation QUESTION: ANSWER Patient and/or caregiver agree upon recommended discharge plan? : Yes Family / Caregiver's ability to cope with chronic illness: : a. Adequate (ability to meet patient's medical needs, ensures patient attends medical appts.) Patient's current cognitive status: : *Oriented to person, place, situation, time and present Patient's ability to cope with chronic illness : d. No chronic illness Patient gives permission to discuss discharge plans with: (name, relationship and number) : Rj Delgado, Does the patient have the ability to pay for or attain post discharge needs / services? : Yes Functional screen assessment: : Basic needs can adequately be met by self Family / Caregiver's ability to cope with chronic illness: : a. Adequate (ability to meet patient's medical needs, ensures patient attends medical appts.) Physical Status: : Independent with ADL's Is there a likelihood that the patient will require additional services to return to the preadmission environment? : Yes Living Arrangements: : Home Alone with Support Partial Dependence, assistance required for: : Ambulation / Mobility Equipment needed for post hospitalization: : None Patient with capacity for self-care or can be cared for in same environment as prior to hospitalization? : Yes Baseline cognitive status: : *Oriented to person, place, situation, time and present Physical environment modification needed / anticipated for discharge: : No Medication Management: : Patient states can read and understand medication labels Medication Management: : Patient states can afford medications Does Patient have transportation to get home and to follow-up medical appointments when discharged from the hospital? : Yes Would patient like to participate in any Care Coordination programs (if applicable): : Not applicable Does the patient have electricity at home? : Yes Does the patient have running water in their house? : Yes Equipment in use: : Wheelchair Equipment in use: : Walker - Rolling Equipment in use: : Crutches Mental health screen: : No mental health history DCP Re-evaluation QUESTION: ANSWER Would patient like to participate in any Care Coordination programs (if applicable): : Not applicable PATIENT: BRAD QURESHI ENCOUNTER: [id number] MEDICAL RECORD#: [id number] ADMISSION DATE: 03/15/2021 DISCHARGE DATE: 03/16/2021 ATTENDING MD: YOUSIF: AGE: 55 MARITAL STATUS: D DC PLAN ID: [id number] FACILITY: [facility] PRINTED ON: 03/16/21 19:15 CT All edits/amendments must be made on the electronic document DICTATION DATE: 03/16/211914 BOWLING OR SKATING FRONT DESK CLERK: MOISÉS 03/16/211914 RPT#: [id number] DC DATE:03/16/21 STATUS: DIS IN [facility] [address] [place] [address] END OF REPORT
--- NOTE | 2021-03-17 13:09 | MORECARE ---
CASE MANAGEMENT DISCHARGE SUMMARY PATIENT: BRAD QURESHI UNIT: [id number] ADM DATE: 03/15/21 AGE: 55 : 65 SEX: M ROOM/BED: D.1209 AUTHOR: JOSE,DOC PHYSICIAN: REFERRING PHYSICIAN: RAVEN CHONG MD DATE OF SERVICE: 03/17/21 Case Management Discharge Planning Summary COMMENTS ENTERED DATE: 03/16/21 13:54 CT COMMENT TYPE: Discharge Planning REVIEWER: Kayode Mccallum CM met with patient to complete DC plan and to evaluate needs. Patient lives alone but has considerable family support. Patient stated that his home is safe and has electricity and running water. Patient stated that the home has a ramp and he can leave and enter his home without problems. Patient stated that he has no problems paying for medications and he fills his medications at [facility]. Patient stated that his primary care physician is Dr. Rodarte. At discharge, the patient plans to return home and feels this is a safe discharge. CM discussed availability of home health, rehab services, and medical equipment. Patient declined SNF, IPR, and DME. Patient has a walker in his room and stated that he has a Wheelchair and Crutches at home. Patient stated that he wants to use [facility]/PT. Spoke with Mira of [facility]. Mira stated that she will have to contact CM team after review of Clinical documents. Mira further stated that they will not have availability until later this week. Clinical Documents faxed to [facility]. MARGAUX signed and placed on chart. Patient voiced no other needs at this time and is satisfied with DC plan. Transportation provider at discharge will be with his brother Eric. DC IMM delivered, explained, signed by the patient, and placed in chart. Signed form also left with the patient. CM will continue to follow and will assist as needed with dc plans/needs. DCP REVIEW SUMMARY ANTICIPATED D/C DATE: EXPECTED LOS : CASE STATUS: DCP Initiated INITIAL REVIEW: 03/15/2021 INITIAL REVIEWER: Kayode Mccallum FINAL DISCHARGE DISPOSITION: : FINAL REVIEWER: FINAL REVIEW DATE: DCP Focus Questions & Answers DCP Evaluation QUESTION: ANSWER Patient and/or caregiver agree upon recommended discharge plan? : Yes Family / Caregiver's ability to cope with chronic illness: : a. Adequate (ability to meet patient's medical needs, ensures patient attends medical appts.) Patient's current cognitive status: : *Oriented to person, place, situation, time and present Patient's ability to cope with chronic illness : d. No chronic illness Patient gives permission to discuss discharge plans with: (name, relationship and number) : Rj Delgado, Does the patient have the ability to pay for or attain post discharge needs / services? : Yes Functional screen assessment: : Basic needs can adequately be met by self Family / Caregiver's ability to cope with chronic illness: : a. Adequate (ability to meet patient's medical needs, ensures patient attends medical appts.) Physical Status: : Independent with ADL's Is there a likelihood that the patient will require additional services to return to the preadmission environment? : Yes Living Arrangements: : Home Alone with Support Partial Dependence, assistance required for: : Ambulation / Mobility Equipment needed for post hospitalization: : None Patient with capacity for self-care or can be cared for in same environment as prior to hospitalization? : Yes Baseline cognitive status: : *Oriented to person, place, situation, time and present Physical environment modification needed / anticipated for discharge: : No Medication Management: : Patient states can read and understand medication labels Medication Management: : Patient states can afford medications Does Patient have transportation to get home and to follow-up medical appointments when discharged from the hospital? : Yes Would patient like to participate in any Care Coordination programs (if applicable): : Not applicable Does the patient have electricity at home? : Yes Does the patient have running water in their house? : Yes Equipment in use: : Wheelchair Equipment in use: : Walker - Rolling Equipment in use: : Crutches Mental health screen: : No mental health history DCP Re-evaluation QUESTION: ANSWER Would patient like to participate in any Care Coordination programs (if applicable): : Not applicable PATIENT: BRAD QURESHI ENCOUNTER: [id number] MEDICAL RECORD#: [id number] ADMISSION DATE: 03/15/2021 DISCHARGE DATE: 03/16/2021 ATTENDING MD: YOUSIF: AGE: 55 MARITAL STATUS: D DC PLAN ID: [id number] FACILITY: [facility] PRINTED ON: 03/17/21 13:09 CT All edits/amendments must be made on the electronic document DICTATION DATE: 03/17/21 1309 LIFESTYLE COORDINATOR: MOISÉS 03/17/21 1309 RPT#: [id number] DC DATE:03/16/21 STATUS: DIS IN [facility] [address] [place] [address] END OF REPORT
== END 2021-03-16 19:12 | disposition home or self-care (01) ==
LOC: D.OPS 08:00 → OBSVTIME 16:05 → D.M3 16:05
PROVIDERS: Anesthesiology; Family Medicine; ADMIT Orthopaedic Surgery; ATTEND Orthopaedic Surgery
DX: M17.11 Unilateral primary osteoarthritis, right knee (principal); E11.9 Type 2 diabetes mellitus without complications; I10 Essential (primary) hypertension; I48.91 Unspecified atrial fibrillation; Z79.01 Long term (current) use of anticoagulants; Z79.84 Long term (current) use of oral hypoglycemic drugs